=== PATIENT | female | born 1995 ===

== ENCOUNTER 2018-08-06 18:55 | Emergency (ER) | payer SELFPAY ==
[2018-08-06 19:36] VITALS: BMI 25.3
[2018-08-06 19:42] VITALS: RESP 18
[2018-08-06] MEDS ORDERED: Sodium Chloride 0.9% 1,000 ML IV STA (20:35)
[2018-08-06 21:29] LABS: VENOUS BLOOD GAS BASE EXCESS -3.3 mmol/L (0.0-2.0); VENOUS BLOOD GAS PO2 29 mm/Hg (30-55); VENOUS BLOOD PH 7.28 (7.32-7.43)
[2018-08-06 21:35] LABS: BASO # 0.01 K/mm3 (0.0-2.0); BASO % 0.2 % (0.0-3.0); EOS # 0.4 (0.0-0.7); EOS % 7.7 % (1.5-5.0); GRAN # 4.13 (1.4-6.5); GRAN % 77.3 % (50.0-68.0); HEMOGLOBIN 14.6 g/dL (12.0-16.0); LYMPH # 0.6 (1.2-3.4); LYMPH % 10.5 % (22.0-35.0); MEAN CORPUSCULAR HEMOGLOBIN 29.3 pg (25.0-35.0); MEAN CORPUSCULAR HGB CONC 33.3 g/dl (31.0-37.0); MEAN PLATELET VOLUME 9.2 fl (7.0-11.0); MONO # 0.2 (0.1-0.6); MONO % 4.3 % (1.0-6.0); RBC 4.99 10^6/uL (3.5-6.1); RED CELL DISTRIBUTION WIDTH 13.7 % (11.5-14.5); WHITE BLOOD COUNT 5.3 10^3/ul (4.5-11.0)
[2018-08-06 21:47] LABS: ALB/GLOB RATIO 1.1 (1.1-1.8); ALBUMIN 4.4 g/dL (3.0-4.8); ALT/SGPT 26 U/L (7-56); AST/SGOT 40 U/L (14-36); BLOOD UREA NITROGEN 7 mg/dL (7-21); CALCIUM 9.3 mg/dL (8.4-10.5); GFR NON-AFRICAN AMERICAN > 60
[2018-08-06 21:55] LABS: URINE APPEARANCE CLEAR (CLEAR); URINE BILIRUBIN NEGATIVE (NEGATIVE); URINE BLOOD SMALL (NEGATIVE); URINE COLOR YELLOW (YELLOW); URINE GLUCOSE (UA) NEGATIVE (NEGATIVE); URINE LEUKOCYTE ESTERASE TRACE Leu/uL (NEGATIVE); URINE PROTEIN TRACE mg/dL (<30 mg/dL); URINE UROBILINOGEN 0.2 E.U./dL (<1 E.U./dL)
--- NOTE | 2018-08-06 21:58 | ED PDOC ---
Arrival/HPI - General Chief Complaint: Syncope Time Seen by Provider: 08/06/18 20:10 Historian: Patient - History of Present Illness Narrative History of Present Illness (Text): 08/06/18 21:55 Patient is a 23-year-old female with past medical history of asthma, reports 4 days of fever with chills, body aches, nausea, headache, lightheadedness. Patient reports recently traveling to [place] 2 weeks ago. Of note, patient states that she saw her PMD 3 days ago regarding the following symptoms, headache flu test done which was negative and was prescribed Motrin for her symptoms. Otherwise: (-) cough, (-) sore throat, (-) URI symptoms, (-) SOB, (-) chest pain, (-) V/D, (-) abdominal pain, (-) flank pain, (-) urinary symptoms, (-) sick contacts. Past Medical History - Infectious Disease Hx of Infectious Diseases: None - Psychiatric Hx Substance Use: No Family/Social History Family/Social History: No Known Family HX Smoking Status: Never Smoked Hx Alcohol Use: Yes Frequency of alcohol use: Socially Hx Substance Use: No Allergies/Home Meds Allergies/Adverse Reactions: Allergies Unobtainable Allergy (Verified 08/06/18 19:37) Review of Systems - Review of Systems Constitutional: Fatigue, Fevers ENT: absent: Voice Changes, Sore Throat, Rhinorrhea, Epistaxis, Sinus Congestion Respiratory: absent: SOB, Cough Cardiovascular: absent: Chest Pain, Palpitations Gastrointestinal: Nausea. absent: Abdominal Pain, Diarrhea, Vomiting Genitourinary Female: absent: Dysuria, Frequency, Hematuria Musculoskeletal: Arthralgias, Myalgias. absent: Back Pain, Neck Pain Skin: absent: Rash, Pruritis, Skin Lesions Neurological: absent: Headache, Dizziness Physical Exam Vital Signs Temp Pulse Resp BP Pulse Ox 08/06/18 18:56 100.5 F H 90 18 108/70 96 Temperature: Febrile Blood Pressure: Normal Pulse: Regular Respiratory Rate: Normal Appearance: Positive for: Well-Appearing, Non-Toxic, Comfortable Pain Distress: None Mental Status: Positive for: Alert and Oriented X 3 - Systems Exam Head: Present: Atraumatic, Normocephalic Pupils: Present: PERRL Extroacular Muscles: Present: EOMI Conjunctiva: Present: Normal Ears: Present: Normal, NORMAL TM, Normal Canal. No: Erythema, TM Bulging Mouth: Present: Moist Mucous Membranes Pharnyx: Present: Normal. No: ERYTHEMA, EXUDATE Neck: Present: Normal Range of Motion, Lymphadenopathy. No: Meningeal Signs Respiratory/Chest: Present: Clear to Auscultation, Good Air Exchange. No: Respiratory Distress, Accessory Muscle Use, Wheezes, Rhonchi Cardiovascular: Present: Regular Rate and Rhythm, Normal S1, S2. No: Murmurs Abdomen: No: Tenderness, Distention, Peritoneal Signs, Rebound, Guarding, Mass/Organomegaly Back: Present: Normal Inspection Upper Extremity: Present: Normal Inspection. No: Cyanosis, Edema Lower Extremity: Present: Normal Inspection. No: Edema Neurological: Present: GCS=15, CN II-XII Intact, Speech Normal, Motor Func Grossly Intact, Normal Sensory Function Skin: Present: Warm, Dry, Normal Color. No: Rashes Psychiatric: Present: Alert, Oriented x 3, Normal Insight, Normal Concentration Medical Decision Making ED Course and Treatment: 08/06/18 21:59 Plan: -- Labs -- IV fluids -- Urinalysis -- Flu -- CXR -- VBG -- Monospot -- Blood / urine cx -- Zofran / Toradol / Tylenol -- Reassess and disposition 08/06/18 22:40 T 98.7 P 70 BP 101/60 R 18 O2sat 99%RA 08/06/18 23:06 CXR : NAD, as read by [facility] E[facility]ada flu : (-) Labs reviewed : wbc 5.3, lactate 1.3, UA +trace leuks As per lab, monospot is a send out. On reevaluation, patient reports improvement of symptoms, denies any headache, dizziness. On exam, patient remains awake alert and oriented 3 in no acute distress. Neck is supple, repeat neuro exam shows no focal findings. Advised to follow up with primary care physician in 1-2 days without fail. Advised to take medication as prescribed. Return to the emergency room at any time for any new or worsening symptoms. Patient states she fully agrees with and understands discharge instructions. States that she agrees with the plan and disposition. Verbalized and repeated discharge instructions and plan. I have given the patient opportunity to ask any additional questions. - Lab Interpretations Lab Results: 08/06/18 21:15 08/06/18 21:15 Lab Results 08/06/18 21:23: pO2 29 L, VBG pH 7.28 L, VBG pCO2 51.0, VBG HCO3 24.0, VBG Total CO2 25.6, VBG O2 Sat (Calc) 51.7, VBG Base Excess -3.3 L, VBG Potassium 4.4, Glucose 85, Lactate 1.3, FiO2 21.0, Sodium 135.0, Chloride 105.0, Venous Blood Potassium 4.4 08/06/18 21:15: Urine Color Yellow, Urine Appearance Clear, Urine pH 6.0, Ur Specific Beattie >= 1.030, Urine Protein Trace H, Urine Glucose (UA) Negative, Urine Ketones Trace H, Urine Blood Small H, Urine Nitrate Negative, Urine Bilirubin Negative, Urine Urobilinogen 0.2, Ur Leukocyte Esterase Trace H, Urine RBC Pending, Urine WBC Pending 08/06/18 21:15: Sodium 136, Potassium 5.0, Chloride 104, Carbon Dioxide 23, Anion Gap 15, BUN 7, Creatinine 0.8, Est GFR ( Amer) > 60, Est GFR (Non- Af Amer) > 60, Random Glucose 87, Calcium 9.3, Total Bilirubin 0.2, AST 40 H, ALT 26, Alkaline Phosphatase 83, Total Protein 8.2, Albumin 4.4, Globulin 3.8, Albumin/Globulin Ratio 1.1 08/06/18 21:15: WBC 5.3, RBC 4.99, Hgb 14.6, Hct 43.9, MCV 88.0, MCH 29.3, MCHC 33.3, RDW 13.7, Plt Count 135, MPV 9.2, Gran % 77.3 H, Lymph % (Auto) 10.5 L, Rice % (Auto) 4.3, Eos % (Auto) 7.7 H, Baso % (Auto) 0.2, Gran # 4.13, Lymph # (Auto) 0.6 L, Rice # (Auto) 0.2, Eos # (Auto) 0.4, Baso # (Auto) 0.01 - RAD Interpretation Radiology Orders: 08/06/18 20:33 CHEST TWO VIEWS (PA/LAT) [RAD] Stat - Medication Orders Current Medication Orders: Discontinued Medications Acetaminophen (Tylenol 325mg Tab) 650 mg PO STAT STA Stop: 08/06/18 20:37 Last Admin: 08/06/18 21:38 Dose: 650 mg Sodium Chloride (Sodium Chloride 0.9%) 1,000 mls @ 1,000 mls/hr IV .Q1H STA Stop: 08/06/18 21:34 Last Admin: 08/06/18 21:38 Dose: 1,000 mls/hr eMAR Start Stop Document 08/06/18 21:38 HI (Rec: 08/06/18 21:[id number]) Intravenous Solution Start Date 08/06/18 Start Time 21:38 Ketorolac Tromethamine (Toradol) 30 mg IVP STAT STA Stop: 08/06/18 20:37 Last Admin: 08/06/18 21:38 Dose: 30 mg MAR Pain Assessment Document 08/06/18 21:38 HI (Rec: 08/06/18 21:[id number]) Pain Reassessment Is this a pain reassessment? No Sleep Is patient sleeping during reassessment? No Presence of Pain Presence of Pain Yes Location Pain Location Body Site Generalized IVP Administration Document 08/06/18 21:38 HI (Rec: 08/06/18 21:[id number]) Charges for Administration # of IVP Administrations 1 Ondansetron HCl (Zofran Inj) 4 mg IVP STAT STA Stop: 08/06/18 20:37 Last Admin: 08/06/18 21:38 Dose: 4 mg IVP Administration Document 08/06/18 21:38 HI (Rec: 08/06/18 21:[id number]) Charges for Administration # of IVP Administrations 1 - PA / MEDICAL BILLING REPRESENTATIVE / Resident Statement / has reviewed & agrees with the documentation as recorded. Disposition/Present on Arrival - Present on Arrival Any Indicators Present on Arrival: No History of DVT/PE: No History of Uncontrolled Diabetes: No Urinary Catheter: No History of Decub. Ulcer: No History Surgical Site Infection Following: None - Disposition Have Diagnosis and Disposition been Completed?: Yes Diagnosis: Fever, Viral illness, UTI (urinary tract infection) Disposition: HOME/ ROUTINE Disposition Time: 23:00 Patient Plan: Discharge Patient Problems: Current Active Problems Problem Status Onset Fever Acute Viral illness Acute Condition: STABLE Discharge Instructions (ExitCare): Fever, Adult (DC), Urinary Tract Infection, Adult (DC) Additional Instructions: Thank you for letting us take care of you today. You were treated for fever, viral illness. The emergency medical care you received today was directed at your acute symptoms. Bed rest, drink lots of fluids, continue taking Motrin for fever and bodyaches.. It may take several days for your symptoms to resolve. Return to the Emergency Department if your symptoms worsen, do not improve, or if you have any other problems. Please contact your doctor in 2 days for re-evaluation and follow up. Bring any paperwork you were given at discharge with you along with any medications you are taking to your follow up visit. Our treatment cannot replace ongoing medical care by a primary care provider (PCP) outside of the emergency department. Thank you for allowing the [facility] team to be part of your care today. If you had an X-Ray : A Radiologist will review the ED reading if any change in treatment is needed we will contact you. If you had a blood, urine culture: It will take several days for the results, if any change in treatment is needed we will contact you. Prescriptions: Nitrofurantoin Macrocrystals [Macrobid] 100 mg PO BID #20 cap Referrals: Flor Peña MD [Primary Care Provider] - Follow up with primary Forms: [facility] ([place]), SCHOOL NOTE, WORK NOTE
[2018-08-06 22:00] LABS: URINE EPITHELIAL CELLS 0 - 2 /hpf (0-5); URINE RBC 0 - 2 /hpf (0-2); URINE WBC 0 - 2 /hpf (0-6)
[2018-08-06 22:01] LABS: URINE BACTERIA TRACE (NEG)
[2018-08-06 22:49] VITALS: O2SAT 99
[2018-08-07 00:10] VITALS: BP 106/78; PULSE 67; TEMP 98.9
--- NOTE | 2018-08-07 10:03 | RAD ---
Date of service: 08/06/2018 HISTORY: fever COMPARISON: No prior. TECHNIQUE: Chest PA and lateral FINDINGS: LUNGS: No active pulmonary disease. PLEURA: No significant pleural effusion identified. No pneumothorax apparent. CARDIOVASCULAR: Normal. OSSEOUS STRUCTURES: No significant abnormalities. VISUALIZED UPPER ABDOMEN: Normal. OTHER FINDINGS: None. IMPRESSION: No active disease.
--- NOTE | 2018-08-07 16:40 | CARD ---
APPROVED REPORT Date of service: 08/06/2018 EKG Measurement Heart [id number] <Conclusion> Normal sinus rhythm Normal ECG
== END 2018-08-07 00:09 | disposition home or self-care (01) ==
LOC: ED 18:55
DX: B34.9 Viral infection, unspecified (principal); N39.0 Urinary tract infection, site not specified
CPT/HCPCS: 71046; 80053; 81001; 82803; 85025; 86308; 87040; 87086; 87804; 93005; 96374; 96375; 99285; J1885; J2405; J7030